=== PATIENT | male | born 1965 | race Caucasian/White ===

== ENCOUNTER 2017-05-03 13:17 | Inpatient (IN) | payer MEDICAID ==
[~2017-05-03] VITALS: Ht 165.1 cm; Wt 77.1 kg
[2017-05-03 14:14] LABS: PLATELET COUNT 342 x10^3mcL (130-400); RED CELL DISTRIBUTION WIDTH 13.9 % (11.5-14.5)
[2017-05-03 14:17] LABS: CALCIUM 9.2 mg/dL (8.5-10.1); CARBON DIOXIDE 29.3 mmol/L (21-32); CHLORIDE SERUM 103 mmol/L (98-107); CREATININE SERUM 1.2 mg/dL (0.7-1.3); GFR1 > 60 mL/min; GLUCOSE SERUM 112 mg/dL (74-106); POTASSIUM SERUM 4.2 mmol/L (3.5-5.1); SODIUM SERUM 140 mmol/L (136-145)
[2017-05-03 14:23] LABS: ALBUMIN 4.3 g/dL (3.4-5.0); ALKALINE PHOSPHATASE 92 U/L (46-116); ALT/SGPT 42 U/L (16-63); AMYLASE 82 U/L (25-115); AST/SGOT 19 U/L (15-37); CHOLESTEROL 198 mg/dL (<200); LIPASE 158 IU/L (73-393)
[2017-05-03 14:24] LABS: HDL CHOLESTEROL 83 mg/dL (40-60); TOTAL PROTEIN, SERUM 8.4 g/dL (6.4-8.2)
[2017-05-03 15:47] LABS: BAND NEUTROPHIL 1 % (0-10); BASOPHIL 0 % (0-2); MONOCYTE 3 % (0-7); PLATELET MORPHOLOGY PLATELETS NORMAL; SEGMENTED NEUTROPHILS 93 % (37-75)
[2017-05-03 18:21] LABS: MAGNESIUM 1.8 mg/dL (1.8-2.4); PHOSPHOROUS 2.6 mg/dL (2.5-4.9)
[2017-05-03 18:25] LABS: microscopic required? YES; urine erythrocyte 1+ (NEGATIVE)
[2017-05-03 18:26] LABS: T3 TOTAL 1.47 ng/mL
[2017-05-03 18:29] LABS: CHOLESTEROL/HDL RATIO 2.5
[2017-05-03 18:30] LABS: FREE T4 1.04 ng/dL (0.76-1.46); FREE THYROXINE INDEX 3.4 ug/dL (1.4-4.5); T4(THYROXINE) 10.4 ug/dL (4.7-13.3)
[2017-05-03 18:34] LABS: AMPHETAMINE QUAL UR POSITIVE (NEG <=1000)
[2017-05-03 19:49] VITALS: BP 122/76
[2017-05-03 21:51] VITALS: BP 122/76
[2017-05-04 06:13] VITALS: BP 129/85
[2017-05-04 07:33] LABS: BASOPHIL % 0.2 % (0-2); PLATELET COUNT 266 x10^3mcL (130-400); RED CELL DISTRIBUTION WIDTH 13.7 % (11.5-14.5)
[2017-05-04 07:41] LABS: CALCIUM 7.6 mg/dL (8.5-10.1); CARBON DIOXIDE 27.5 mmol/L (21-32); CHLORIDE SERUM 104 mmol/L (98-107); GFR1 > 60 mL/min; GLUCOSE SERUM 101 mg/dL (74-106); PHOSPHOROUS 3.3 mg/dL (2.5-4.9); POTASSIUM SERUM 3.6 mmol/L (3.5-5.1); SODIUM SERUM 140 mmol/L (136-145)
[2017-05-04 09:00] VITALS: BP 122/87
[2017-05-04 14:20] VITALS: BP 124/84
[2017-05-04 18:00] VITALS: BP 125/80
[2017-05-04 22:42] VITALS: BP 121/86
[2017-05-05 06:03] LABS: BASOPHIL % 0.3 % (0-2); PLATELET COUNT 256 x10^3mcL (130-400); RED CELL DISTRIBUTION WIDTH 13.6 % (11.5-14.5)
[2017-05-05 06:14] LABS: CALCIUM 7.8 mg/dL (8.5-10.1); CARBON DIOXIDE 24.5 mmol/L (21-32); CHLORIDE SERUM 107 mmol/L (98-107); CREATININE SERUM 0.7 mg/dL (0.7-1.3); GFR1 > 60 mL/min; GLUCOSE SERUM 99 mg/dL (74-106); POTASSIUM SERUM 3.7 mmol/L (3.5-5.1); SODIUM SERUM 139 mmol/L (136-145)
[2017-05-05 06:17] VITALS: BP 138/88
[2017-05-05 09:14] VITALS: BP 138/88
[2017-05-05 09:42] VITALS: BP 143/93
[2017-05-05 13:54] VITALS: BP 135/88
[2017-05-05] MEDS ORDERED: ZOF4 PO (15:22)
[2017-05-05] MEDS ORDERED: IBUPROFEN800 MG PO (15:23)
== END 2017-05-05 15:35 | disposition home or self-care (01) | DRG 249 ==
LOC: ED 13:17 → DU 17:37
PROVIDERS: Emergency Medicine; ADMIT Family Medicine
DX: A08.4 Viral intestinal infection, unspecified (principal); N17.0 Acute kidney failure with tubular necrosis; E86.0 Dehydration; F12.188 Cannabis abuse with other cannabis-induced disorder; F15.20 Other stimulant dependence, uncomplicated; M94.0 Chondrocostal junction syndrome [Tietze]; E78.2 Mixed hyperlipidemia
CPT/HCPCS: 83880; 84439; 87046; 87046-59; J1885; J2405; J2543; J3010; J7030